=== PATIENT | male | born 1990 | race African-American/Black ===

== ENCOUNTER 2017-05-29 11:44 | Emergency (ER) | payer MEDICAID ==
[~2017-05-29] VITALS: Ht 180.3 cm; Wt 80.0 kg
[2017-05-29] MEDS ORDERED: IBUPROFEN 600MG TABLET PO ONE (12:30)
[2017-05-29 12:50] VITALS: BP 154/89
== END 2017-05-29 13:48 | disposition home or self-care (01) ==
LOC: ER 12:34
DX: L73.2 Hidradenitis suppurativa (principal); F11.10 Opioid abuse, uncomplicated; F12.10 Cannabis abuse, uncomplicated; F15.10 Other stimulant abuse, uncomplicated
CPT/HCPCS: 10060; 99283

== ENCOUNTER 2017-08-03 06:48 | Emergency (ER) | payer MEDICAID ==
[~2017-08-03] VITALS: Ht 170.2 cm; Wt 70.0 kg
[2017-08-03] MEDS ORDERED: ACETAMINOPHEN 325MG TABLET PO ONE (08:00)
[2017-08-03] MEDS ORDERED: LIDOCAINE HCL 1% 20ML VIAL (Pyxis) INJ MC ONE (08:00)
[2017-08-03] MEDS ORDERED: BACITRACIN ZINC OINT UDPKT TOP ONE (08:00)
[2017-08-03 10:03] VITALS: BP 130/92
== END 2017-08-03 10:57 | disposition home or self-care (01) ==
LOC: ER 07:23
DX: S51.812A Laceration without foreign body of left forearm, initial encounter (principal); S61.511A Laceration without foreign body of right wrist, initial encounter; W25.XXXA Contact with sharp glass, initial encounter; Y93.89 Activity, other specified; Y92.018 Other place in single-family (private) house as the place of occurrence of the external cause
CPT/HCPCS: 73090; 73110; 99284; J3490; X7700; Z7610